=== PATIENT | female | born 1960 | race Two or more races ===

== ENCOUNTER 2017-07-06 19:48 | Emergency (ER) | payer OTHER ==
[~2017-07-06 19:48] MED LIST: COLACE100 MG PO; HYDROCHLOROTHIA25 MG PO; MEVACOR40 MG PO; NORCO1 TA2 PO; ZOLOFT25 MG PO
[2017-07-06 22:05] LABS: BASOPHIL % 0.5 % (0-2); PLATELET COUNT 234 x10^3mcL (130-400); RED CELL DISTRIBUTION WIDTH 13.3 % (11.5-14.5)
[2017-07-06 22:09] LABS: CARBON DIOXIDE 32.8 mmol/L (21-32); CHLORIDE SERUM 103 mmol/L (98-107); CREATININE SERUM 0.8 mg/dL (0.6-1.0); GFR1 > 60 mL/min; GLUCOSE SERUM 110 mg/dL (74-106); POTASSIUM SERUM 3.5 mmol/L (3.5-5.1); SODIUM SERUM 141 mmol/L (136-145)
[2017-07-06 22:14] LABS: ALBUMIN 3.5 g/dL (3.4-5.0); ALKALINE PHOSPHATASE 64 U/L (46-116); ALT/SGPT 26 U/L (14-59); AMYLASE 51 U/L (25-115); AST/SGOT 23 U/L (15-37); BILIRUBIN TOTAL 0.33 mg/dL (0.20-1.00); LIPASE 275 IU/L (73-393); TOTAL PROTEIN, SERUM 7.2 g/dL (6.4-8.2)
[2017-07-07 00:08] VITALS: BP 109/68
== END 2017-07-07 00:08 | disposition home or self-care (01) ==
LOC: ED 19:48
PROVIDERS: Specialist
DX: M94.0 Chondrocostal junction syndrome [Tietze] (principal); R10.13 Epigastric pain; I10 Essential (primary) hypertension; E78.00 Pure hypercholesterolemia, unspecified; F32.9 Major depressive disorder, single episode, unspecified
CPT/HCPCS: Q0092